=== PATIENT | female | born 1985 | race Caucasian/White ===

== ENCOUNTER → 2016-06-17 | Outpatient (CLI) | payer MEDICAID ==
[~2016-06-17] MED LIST: AMOX1TAB12 PO; AMOX875T2 PO; FLUT16SP NS; IPRA3AMP11 INH; PRED20TA PO
[2016-06-17 12:21] VITALS: BP 138/80
--- NOTE | 2016-06-17 12:21 | Urgent Care T Sheet Gen (E) ---
Intake General Temperature (Fahrenheit): 98.0 Pulse: 95 Blood Pressure Systolic: 138 Blood Pressure Diastolic: 80 Respirations: 22 SPO2: 96 Description of Symptoms Patient presents with sudden onset of illness yesterday. Notes ST, PND with dry cough and R ear pain. No fever. Been taking Korin [place] cold and Benadryl because she initially thought the symptoms were allergies. Patient states that ever since receiving chemo a few years ago, she gets sick very quickly. History of Present Illness Allergies: Coded Allergies: No Known Drug Allergies (Unverified , 10/23/15) Home Meds Active Scripts Amoxicillin/Clavulanate Potassium (Augmentin 875mg/125mg)1 Each Tablet1 Tab PO BID #14 TAB Ref 0 Prov:BERTO HALL 06/17/16 Albuterol/Ipratropium (Duoneb 3mg-0.5mg/3ml)3 Ml Nebu3 Ml INH QID cough #1 BOX Ref 0 Prov:HAYLEE LALA MD 01/01/16 Prednisone 20 Mg [id number] Mg PO BID #10 TAB Prov:HAYLEE LALA MD 01/01/16 Respiratory Constitutional Symptoms: No syptoms reported EENTM: Ear pain Nose Congestion Throat pain Respiratory: Cough Cardiovascular: No symptoms reported Gastrointestinal/Abdominal: No symptoms reported All Other Systems Reviewed Remaining Systems: All other systems reviewed with negative findings Past Pcbnllj-Qgzmzi-Xqxsaw Hx Patient's Social History Alcohol Use: Rarely Uses Smoking Status: Never smoker Recent foreign travel: No Surgeries/Hospitalizations Hospitalization/Surgery Hx: tonsils lymphnodes removed from neck and arm Respiratory Respiratory History: Asthma Cardiovascular Cardiovascular History: None Reproductive System Sexually Transmitted Diseases: No Genitouinary Genitourinary History: Other, see comments Gastrointestinal GI/Endocrine History: None Diabetes Diabetes: No HEENT Impaired Vision: None Hearing Impaired: None Cancer History of Cancer?: Yes Psychosocial Behavior Disorders: None Physical Exam Physical Exam General Appearance: WD/WN No apparent distress Eyes, Ears, Nose, Throat Ex: TM abnormal (R) (red, bulging) Pharyngeal erythema (cobblestone appearance) Other (clear, thin nasal drainage with pale nasal turbinates) Neck Exam: SuppleNo Lymphadenopathy Respiratory Exam: Lungs clear Normal breath sounds Cardiovascular Exam: Regular rate, rhythm Departure Urgent Care Impression Impression: Primary Impression: Allergic sinusitis Additional Impression: Otitis media Qualified Code: H66.001 - Acute suppurative otitis media without spontaneous rupture of ear drum, right ear Departure Disposition: 01 HOME OR SELF-CARE Condition: Stable Referrals: Lara Bruno (PCP) Additional Instructions: I have started the patient on Augmentin for treatment of her OM. Explained that the antibiotic possibly won't help with the nasal symptoms as those look more allergy and I'm treating a secondary ear infection. Rest. Fluids Return as needed Patient understands DC instructions. All questions were answered. Scripts Amoxicillin/Clavulanate Potassium (Augmentin 875mg/125mg)1 Each Tablet1 Tab PO BID #14 TAB Ref 0 Prov:BERTO HALL 06/17/16 End of report . BERTO HALL June 17, 2016 10:52
== END ==
LOC: MHUC 10:36
PROVIDERS: ATTEND Physician Assistant
DX: J30.9 Allergic rhinitis, unspecified (principal); H66.001 Acute suppurative otitis media without spontaneous rupture of ear drum, right ear
CPT/HCPCS: 99213

== ENCOUNTER 2016-07-04 18:39 | Emergency (ER) | payer MEDICAID ==
[~2016-07-04] VITALS: Ht 157.5 cm; Wt 99.0 kg
--- OUTSIDE RECORDS SUMMARY | 2016-07-04 18:43 | XMS REPORT | Continuity of Care Document ---
Author Author [facility] Organization [facility] Address Unknown Phone Unavailable Care Team Providers Care Air Quality Chemist Name Role Phone Lara Bruno PCP [phone] Source Comments Some departments are not documenting in the electronic medical record. If you do not see the information that you expected, contact Release of Information in the Health Information Management department at [phone] for further assistance in locating additional records.[facility] Active Allergies and Adverse Reactions No Known Allergies Current Medications Prescription Sig. Disp. Refills Start End Date Status Date dextroamphetamine SR Take 15 mg by mouth every Active (DEXEDRINE SPANSULE) 15 morning mg capsule albuterol (VENTOLIN HFA, Inhale 2 Puffs by mouth Active PROAIR HFA) 90 every 6 hours as needed mcg/actuation inhaler for Wheezing. lamoTRIgine (LAMICTAL) Take 150 mg by mouth at Active 150 mg tablet bedtime daily. traZODone (DESYREL) 150 Take 150 mg by mouth at Active mg tablet bedtime as needed. loratadine (CLARITIN) 10 Take 10 mg by mouth daily Active mg tablet as needed. oxyCODONE-acetaminophen Take 1 Tab by mouth every Active (PERCOCET; ENDOCET) 4 hours as needed 10-325 mg tablet valACYclovir (VALTREX) Take 500 mg by mouth at Active 500 mg tablet bedtime daily. Active Problems Problem Noted Date History of Hodgkin's lymphoma 11/08/2014 Lymphadenopathy 11/08/2014 Immunizations Name Dates Previously Given Next Due Flu Vaccine 11/24/2014 Quadrivalent=>3 Yo (Preservative Free) Social History Tobacco Use Types Packs/Day Years Used Date Former Smoker Cigarettes 0.1 1 Quit: 10/13/2005 Smokeless Tobacco: Never Used Alcohol Use Drinks/Week oz/Week Comments Yes 0 Standard 0.0 No drink since January drinks or equivalent Last Filed Vital Signs Vital Sign Reading Time Taken Blood Pressure 141/99 11/24/2014 1:57 PM CDT Pulse 87 11/24/2014 1:57 PM CDT Temperature 36.8 C (98.2 F) 11/24/2014 1:57 PM CDT Respiratory Rate 18 11/24/2014 1:57 PM CDT Height 1.575 m (5' 2.01") 11/24/2014 1:57 PM CDT Weight 87.998 kg (194 lb) 11/24/2014 1:57 PM CDT Body Mass Index 35.47 11/24/2014 1:57 PM CDT Oxygen Saturation 97% 11/24/2014 1:57 PM CDT Plan of Care Health Maintenance Due Date Last Done Comments Physical (Comprehensive) 01/20/1991 Exam Pertussis Vaccine 01/20/1995 Tetanus Vaccine 01/20/2001 Cervical Cancer Screening 01/20/2005 Influenza Vaccine 10/17/2016 11/24/2014, 11/24/2014 Results from Last 3 Months Not on file
--- OUTSIDE RECORDS SUMMARY | 2016-07-04 18:44 | XMS REPORT | Continuity of Care Document ---
Author Author [facility] Organization [facility] Address Unknown Phone Unavailable Care Team Providers Care Clinical Product Manager Name Role Phone Lara Bruno PCP [phone] Source Comments Some departments are not documenting in the electronic medical record. If you do not see the information that you expected, contact Release of Information in the Health Information Management department at [phone] for further assistance in locating additional records.[facility] Active Allergies and Adverse Reactions No [...]
[2016-07-04] MEDS ORDERED: TRM50T PO (19:38)
[2016-07-04] MEDS ORDERED: [UNRECOGNIZED DRUG - CODE] PO (19:46)
[2016-07-04] MEDS ORDERED: VALA500T PO (19:46)
[2016-07-04] MEDS ORDERED: NORG1TAB75 PO (19:46)
[2016-07-04] MEDS ORDERED: DEXT10CA4 PO (19:46)
[2016-07-04] MEDS ORDERED: NF-LAM100T PO (19:46)
[2016-07-04 19:59] VITALS: BP 133/88
--- NOTE | 2016-07-04 20:09 | Diagnostic Imaging Report ---
CLINICAL INDICATION: Patient is status post fall, pain in lateral foot and ankle. EXAM: X-ray of the right ankle, three views. COMPARISON: None. FINDINGS: There is no evidence of acute fracture or dislocation. There are mildly hypertrophic calcaneal spurs at the Achilles attachment. The ankle mortise and syndesmotic joints are unremarkable. IMPRESSION: 1: There is no acute fracture or dislocation. 2: There is minimal spurring of the calcaneus. Dictated by: Dictated on workstation # [id number]
--- NOTE | 2016-07-04 20:17 | Diagnostic Imaging Report ---
Clinical indication: Patient status post fall with pain in lateral foot and ankle. Exam: X-ray of the right foot, 3 views. Comparison: None. Findings: There is no acute fracture or dislocation. There is a small calcaneal spur at the Achilles attachment. There is no other significant bone or joint abnormality. Impression: 1.: There is no acute fracture or dislocation. 2: There is mild calcaneal spurring. Dictated by: Dictated on workstation # [id number]
== END 2016-07-04 19:55 | disposition home or self-care (01) ==
LOC: ED 18:40
DX: S93.491A Sprain of other ligament of right ankle, initial encounter (principal); W19.XXXA Unspecified fall, initial encounter; Y92.009 Unspecified place in unspecified non-institutional (private) residence as the place of occurrence of the external cause
CPT/HCPCS: 73610; 99283